=== PATIENT | male | born 1935 | race Caucasian/White ===

== ENCOUNTER 2016-07-13 08:45 | Outpatient (CLI) | payer MEDICARE | END 2016-07-13 08:46 | disposition home or self-care (01) | DX: E78.5 Hyperlipidemia, unspecified (principal); R05 Cough; J30.9 Allergic rhinitis, unspecified; J18.9 Pneumonia, unspecified organism; I25.9 Chronic ischemic heart disease, unspecified; N18.3 Chronic kidney disease, stage 3 (moderate); R73.01 Impaired fasting glucose; Z85.828 Personal history of other malignant neoplasm of skin ==

== ENCOUNTER 2016-07-23 10:32 | Outpatient (CLI) | payer MEDICARE | END 2016-07-23 10:33 | disposition home or self-care (01) | DX: R35.1 Nocturia (principal); R35.0 Frequency of micturition ==

== ENCOUNTER 2016-11-22 11:29 | Emergency (ER) | payer MEDICARE ==
[2016-11-22] MEDS ORDERED: predniSONE 20 MG TABLET PO STA (12:19)
[2016-11-22] MEDS ORDERED: MORPHINE 10 MG/ML VIAL IM STA (12:20)
[2016-11-22] MEDS ORDERED: predniSONE 20 MG TABLET ONE (12:33)
[2016-11-22] MEDS ORDERED: MORPHINE 10 MG/ML VIAL ONE (12:33)
--- NOTE | 2016-11-22 13:17 | ED Physician Documentation ---
History of Present Illness - Stated complaint Stated Complaint: BACK PAIN - Chief complaint Chief Complaint: Back Pain - History of Present Illness Timing: Prior to arrival - Additonal information Additional information: Patient is a pleasant 81-year-old man who has a history of a bulging disc at L2 he says. A decision was made to treat him medically for this problem but at present he only takes Tylenol as needed. He does have chronic kidney disease and is instructed to not take nonsteroidal anti-inflammatories. He has had steroid injections in the past. He denies any recent injury but did lift his dog the other day and now has low back pain. Low back pain is more on the left in the lumbar area and this pain does occasionally radiate into the left anterior and medial thigh. He denies any radiation of pain to below the knee. He denies any perineal anesthesia or having any difficulty with normal elimination. The low back pain is worse with movement and better with rest. He denies any other symptoms such as anterior discomfort, nausea, vomiting constipation diarrhea lower urinary symptoms. Review of systems: For pertinent positive and negatives in the review of systems please see history of present illness. Otherwise all other systems have been reviewed and are negative. Dragon disclaimer: Parts of this medical record were created using voice recognition technology. Because of the inherent limitations of this system occasional same sounding word substitutions do occur and persist despite proofreading. Please read the document for context. Review of Systems Ten Systems: 10 systems reviewed and negative GI: denies: Abdominal Pain, Abdominal Swelling, Nausea, Vomiting, Constipation, Diarrhea, Hematemesis, Bloody / black stool Musculoskeletal: reports: Back pain, Extremity pain. denies: Neck pain, Joint pain, Extremity swelling, Joint swelling, Pain with weight bearing, Reviewed and negative Neurologic: reports: Numbness. denies: Focal weakness PD PAST MEDICAL HISTORY - Past Medical History Cardiovascular: Congestive heart failure, Hypertension, High cholesterol : Benign prostate hypertrophy - Past Surgical History Past Surgical History: Yes Cardiovascular: CABG Derm: Skin cancer surgery - Present Medications Home Medications: Ambulatory Orders Medication Instructions Recorded Confirmed Lisinopril [Prinivil] 5 mg PO BID 11/03/12 11/22/16 Tamsulosin [Flomax] 0.4 mg PO BID 11/03/12 05/28/14 Aspirin [[place] Aspirin] 81 mg PO BID 05/28/14 11/22/16 Calcium Carbonate/Vitamin D3 1 tab PO DAILY PRN 05/28/14 11/22/16 [Calcium 600 + Vit D 400 Softgl] Lutein/Zeaxanthin [Ocuvite Lutein 1 cap PO DAILY 11/22/16 11/22/16 25-5 mg Softgel] Prednisone 40 mg PO DAILY #8 tablet 11/22/16 Tramadol HCl 50 mg PO Q8HR PRN #14 tablet 11/22/16 - Allergies Allergies/Adverse Reactions: Allergies Allergy/AdvReac Type Severity Reaction Status Date / Time amitriptyline Allergy Anaphylaxis Verified 11/22/16 13:58 Sulfa (Sulfonamide AdvReac Unknown Rash Verified 11/03/12 10:35 Antibiotics) - Social History Does the pt smoke?: No Smoking Status: Never smoker Does the pt drink ETOH?: Yes Does the pt have substance abuse?: No - Immunizations Immunizations are current?: Yes - POLST Patient has POLST: No PD ED PE NORMAL - Vitals Vital signs reviewed: Yes - General General: Alert and oriented X 3, No acute distress, Well developed/nourished - HEENT HEENT: Atraumatic, PERRL - Cardiac Cardiac: RRR, No murmur - Respiratory Respiratory: No respiratory distress - Abdomen Abdomen: Normal bowel sounds, Non tender - Back Back: No CVA TTP, No spinal TTP - Derm Derm: Normal color, Warm and dry - Extremities Extremities: No deformity, No tenderness to palpate, Normal ROM s pain - Neuro Neuro: No motor deficit, No sensory deficit Results - Vitals Vitals: Vital Signs - 24 hr 11/22/16 11/22/16 11/22/16 11:38 12:51 13:50 Temperature 36.7 C Heart Rate 67 67 39 L Respiratory 18 18 16 Rate Blood Pressure 136/76 H O2 Saturation 100 97 97 Oxygen O2 Source Room air PD MEDICAL DECISION MAKING - ED course Complexity details: reviewed old records, reviewed results, re-evaluated patient , considered differential, d/w patient, d/w family ED course: Patient is a pleasant 81-year-old man who presents with a complaint of low back pain. There is some radiation into the left anterior and medial thigh. In general he is a well-appearing man there is no indication there is anything intra-abdominal. His abdomen is soft and nontender there is no palpable mass. Strength testing reflexes and sensation is grossly intact in the lower extremities. We did perform a CT scan that shows severe L3 and L4-L5 arthritis without any obvious spinal stenosis or severe impinging disc. The patient did well clinically he is given morphine 5 mg and prednisone and at this time looks and feels better we are unable to give nonsteroidal anti-inflammatory because of his chronic kidney disease history. The treatment plan is to place him on Tylenol as needed, as needed tramadol and continue a short course of oral prednisone. On vital sign recheck the patient's heart rate he thought was in the 30s however an EKG he has paired ventricular premature contractions and his true heart rate is in the 80s. EKG shows sinus rhythm interspersed with PVCs there is prolongation of GA interval however the curet RS and QT intervals are normal there is no ST elevation depression or T-wave inversion. At this point in time the patient will be discharged home Disposition: To home Clinical impression: 1. Low back pain and strain L3-L4 moderate arthritis and L4-L5 severe arthritis on CT scan 2. . Ventricular premature complexes Departure - Departure Disposition: 01 Home, Self Care Clinical Impression: Lumbar back pain Condition: Good Instructions: ED Sprain Strain Lumbar Follow-Up: Sandeep Leach MD [Primary Care Provider] - Prescriptions: Tramadol HCl 50 mg PO Q8HR PRN #14 tablet PRN Reason: Pain Prednisone 40 mg PO DAILY #8 tablet
--- NOTE | 2016-11-22 13:32 | CT Preliminary Report ---
Exam: CT Lumbar Spine W/O IMPRESSION: Moderate to severe degenerative disk disease L4-L5 and L5-S1. [facility] SITE ID: [id number]
--- NOTE | 2016-11-22 13:34 | CT Report ---
EXAM: CT LUMBAR SPINE WITHOUT CONTRAST EXAM DATE: 11/22/2016 01:18 PM. CLINICAL HISTORY: Left leg numbnes, l side LBP, no weakness, hx . COMPARISONS: None. TECHNIQUE: Thin-section axial images were acquired of the lumbar spine from T12 to S1 without contras t. Post-processing: Coronal and sagittal reformats. Other: None. In accordance with CT protocol optimization, one or more of the following dose reduction techniques w ere utilized for this exam: automated exposure control, adjustment of mA and/or KV based on patient s ize, or use of iterative reconstructive technique. FINDINGS: Alignment: Normal. No scoliosis or spondylolisthesis. Bones: Five [id number]-nwgskcd lumbar vertebral bodies are present. No fractures or bone lesions. Disk Levels/Facets: T12-L1: Unremarkable. L1-L2: Unremarkable. L2-L3: Unremarkable. L3-L4: Unremarkable. L4-L5: Moderate degenerative disk disease. L5-S1: Severe degenerative disk disease. Musculature: Normal. No fatty atrophy. Other: The visualized pelvic cavity is unremarkable. IMPRESSION: Moderate to severe degenerative disk disease L4-L5 and L5-S1. [facility] Referring Provider Line: [phone] SITE ID: [id number]
[2016-11-22 14:35] VITALS: BP 126/62
== END 2016-11-22 14:35 | disposition home or self-care (01) ==
LOC: ED 11:29
DX: M54.5 Low back pain (principal); M51.37 Other intervertebral disc degeneration, lumbosacral region; I13.0 Hypertensive heart and chronic kidney disease with heart failure and stage 1 through stage 4 chronic kidney disease, or unspecified chronic kidney disease; I50.9 Heart failure, unspecified; N18.9 Chronic kidney disease, unspecified; E78.00 Pure hypercholesterolemia, unspecified; N40.0 Benign prostatic hyperplasia without lower urinary tract symptoms; Z79.82 Long term (current) use of aspirin
CPT/HCPCS: 72131; 93005; 96372; 99283; 99285; J7512

== ENCOUNTER 2017-06-24 08:46 | Outpatient (CLI) | payer OTHER | END 2017-06-24 08:47 | disposition short-term general hospital (02) | LOC: EMS 08:46 | PROVIDERS: ATTEND Surgery | DX: R42 Dizziness and giddiness (principal); R09.89 Other specified symptoms and signs involving the circulatory and respiratory systems | CPT/HCPCS: A0425; A0427 ==

== ENCOUNTER 2017-09-23 11:09 | Outpatient (CLI) | payer MEDICARE | END 2017-09-23 11:10 | disposition home or self-care (01) | LOC: RT 11:09 | PROVIDERS: ATTEND Family Medicine | DX: I50.9 Heart failure, unspecified (principal); I44.2 Atrioventricular block, complete; I27.20 Pulmonary hypertension, unspecified | CPT/HCPCS: 93005 ==

== ENCOUNTER 2017-10-28 14:26 | Outpatient (CLI) | payer MEDICARE | END 2017-10-28 14:27 | disposition home or self-care (01) | LOC: RT 14:26 | PROVIDERS: ATTEND Internal Medicine | DX: R00.8 Other abnormalities of heart beat (principal); I49.3 Ventricular premature depolarization | CPT/HCPCS: 93005 ==